=== PATIENT | female | born 1935 | race Caucasian/White ===

== ENCOUNTER 2024-02-02 12:04 | Emergency (ER) | payer OTHER, SELFPAY ==
--- NOTE | 2024-02-02 12:19 | XR_ITS ---
Examination: Duplex scan of the lower extremity, unilateral right complete Date and time of exam: February 02, 2024 1350 hours INDICATIONS: Right lower leg swelling and pain beginning 4 days ago Technique: Duplex scan of the extremity veins using B-mode/grayscale imaging and Doppler spectral analysis and color flow Attention is directed to internal echogenicity, compression and augmentation involving these veins, color flow assessment, spectral analysis Findings: Major deep venous structures in the extremity demonstrate normal course and caliber. There is no evidence of deep vein thrombosis. Normal color flow and spectral analysis Impression: Negative for DVT..
--- NOTE | 2024-02-02 12:20 | XR_ITS ---
Examination: Foot, right, 3 views Technique: AP, oblique, lateral views foot, 3 views Date and time of exam: February 02, 2024 1241 hours INDICATIONS: Right foot swelling beginning 3 days ago, diagnosis rheumatoid arthritis FINDINGS: Severe osteopenia Healed fracture distal fifth metatarsal Significant diffuse narrowing joints of the foot Soft tissue vascular calcification No acute fracture IMPRESSION: Severe osteopenia Old healed fracture fifth metatarsal No acute fracture Significant diffuse narrowing joints of the foot
--- NOTE | 2024-02-02 12:20 | XR_ITS ---
Examination: Tibia-Fibula, right , 2 views Technique: Tibia-fibula AP lateral 2 views Date and time of exam: February 02, 2024 1241 hours INDICATIONS: Swelling involving the lower leg beginning 3 days ago, diagnosis rheumatoid arthritis IMPRESSION: Severe osteopenia Soft tissue vascular calcification. No fracture or dislocation IMPRESSION: No fracture or dislocation
[2024-02-02 12:21] VITALS: BP 132/72; PULSE 102; RESP 16; TEMP 36.8; O2SAT 96; BMI 21.2
--- NOTE | 2024-02-02 15:12 | EDNOTE_ITS ---
Lower Extremity Injury RME/HPI General Chief Complaint: Skin/Abscess/Foreign Body Stated Complaint: right calf,garsia, ankle swelling/pain x2 Time Seen by Provider: 02/02/24 12:18 Arrival date/time: 02/02/24 12:04 RME / HPI RME / HPI Narrative: This section includes all my notes and documentations, including HPI, PE, and ED course.? Johnathan Fraga MD HPI: 88 year old female here with about a week history of pain and swelling in the right lower leg. No obvious injury. No redness or warmth. Definitely worse with certain movements and weight bearing. No CP or SOB. No other complaints. ROS: All negative except as documented in HPI. Physical Exam: General:? Alert and oriented.? No acute distress when remaining still. Eyes:? Conjunctivae and lids clear.?? ENT:? No nasal congestion.? Neck:? Supple.?? Lungs:? No respiratory distress.? Skin:? Warm and dry.?? Neuro:? Alert and oriented X 3. Right Lower Leg: Diffuse edema. No erythema/calor. Tenderness noted but difficult to localize. My interpretation of the right lower leg and right foot x-rays is no acute findings. My review of the right leg US report is no DVT. At this point, diagnoses include?Right Leg Sprain. Recommended a trial of conservative treatment. Based on my best medical judgment, made decision no further evaluation or treatment indicated at this time.? Patient (and son) understands and agrees to the discharge instructions customized and printed, see below. Discharge Instructions from Dr. Fraga printed for you: 1. Fortunately, there is no broken bone. And there is no DVT (blood clots) which can be fatal. 2. You sprained/strained your right lower leg. Will take a couple of weeks to get better. 3. Activity as tolerated. Apply ice for 20 minutes every 2-3 hours today and tomorrow. Ibuprofen 200 mg every 6-8 hours today and tomorrow to decrease inflammation then as needed. Apply ice/heat if helpful. Apply [id number] lidocaine patches as needed. 4. And avoid tight fitting shoes. And maybe most importantly, elevate your feet/ankles ABOVE your waist level when sitting or resting or sleeping. 5. See a private doctor 2 weeks if not completely better. 6. Seek immediate medical care with worsening or with any concerns. Johnathan Fraga MD Related Data Previous Rx's ?Medication ?Instructions ?Recorded diphenhydramine HCl 2 % topical 1 applic topical BID #118 mL 12/24/22 gel (Anti-Itch (diphenhydramine)) Allergies Allergy/AdvReac Type Severity Reaction Status Date / Time Penicillins Allergy Verified 02/02/24 12:07 pentazocine [From Talwin] Allergy Verified 02/02/24 12:07 Course Quality Measures none Orders Category Date Time Status US venous doppler LE RT Stat Exams 02/02/24 12:19 Completed XR foot comp RT min 3V Stat Exams 02/02/24 12:20 Completed XR tibia fibula RT 2V Stat Exams 02/02/24 12:20 Completed Vital Signs Vital signs: Vital Signs Temperature 98.3 F 02/02/24 12:21 Pulse Rate 102 H 02/02/24 12:21 Respiratory Rate 16 02/02/24 12:21 Blood Pressure 132/72 H 02/02/24 12:21 Pulse Oximetry (%) 96 02/02/24 12:21 Oxygen Delivery Method Room Air 02/02/24 12:21 Extremity Injury, Lower Patient data External records reviewed:: [facility] previous records Clinical information provided by:: patient and family Social determinants that could affect healthcare access:: none Patient has the following chronic illnesses:: see chart How is presenting disease/condition affected by chronic disease/condition?: uneffected by Evaluation data The following diagnostics were reviewed and interpreted by me:: radiology exam(s) Lab and/or radiology exams considered but not ordered:: none Interpretation Summary: right leg sprain Medications / Prescriptions Medications or Prescriptions considered but not ordered:: none Medication administrations:: none Consultations Consultation(s) initiated? (list below): No Diagnosis Extremity Injury, Lower Differential Diagnosis: ankle sprain and strain, acute internal derangement of knee and ankle fracture Most likely diagnosis given after review of the tests above:: right leg sprain Admission Indicated Admission indicated?: not indicated Explain why admission is indicated or not indicated:: Admission criteria not met Admission Request Was there a request for admission?: No Disposition Plan Disposition Plan: Discharge Discharge Attestation Discharge Attestation: The patient and all family members were given an opportunity to ask questions and understood the discharge instructions. Discharge instructions specifically effects, indications for sooner follow up or return to the emergency department, and the expected course of current diagnosis. Patient condition: Stable Discharge Plan Plan Patient Disposition: HOME (Self Care) Prescriptions/Referrals Prescriptions/Med Rec: No Action Anti-Itch (diphenhydramine) 2 % gel 1 applic topical BID Qty: 118 0RF Referrals: No Primary/Family,Physician [Primary Care Provider] - In 1 week Problem List Clinical Impression: High ankle sprain of right lower extremity Patient/Caregiver Discharge Instructions Discharge Activity: activity as tolerated Education Materials: ED Muscle Strain, Extremity, ED Ankle Sprain (Adult) Additional Instructions: Discharge Instructions from Dr. Fraga printed for you: 1. Fortunately, there is no broken bone. And there is no DVT (blood clots) which can be fatal. 2. You sprained/strained your right lower leg. Will take a couple of weeks to get better. 3. Activity as tolerated. Apply ice for 20 minutes every 2-3 hours today and tomorrow. Ibuprofen 200 mg every 6-8 hours today and tomorrow to decrease inflammation then as needed. Apply ice/heat if helpful. Apply [id number]-urh-[id number] lidocaine patches as needed. 4. And avoid tight fitting shoes. And maybe most importantly, elevate your feet/ankles ABOVE your waist level when sitting or resting or sleeping. 5. See a private doctor 2 weeks if not completely better. 6. Seek immediate medical care with worsening or with any concerns. Print Language: B[place] Stand Alone Forms: Ofe Award Info., Patient Portal Info Letter
== END 2024-02-02 15:45 | disposition home or self-care (01) ==
PROVIDERS: Emergency Provider Emergency Medicine
DX: S93.401A Sprain of unspecified ligament of right ankle, initial encounter (principal); M79.89 Other specified soft tissue disorders; X58.XXXA Exposure to other specified factors, initial encounter
CPT/HCPCS: 73590; 73630; 93971; 99284

== ENCOUNTER 2024-04-10 06:13 | Emergency (ER) | payer MEDICARE, MEDICAID, SELFPAY ==
--- NOTE | 2024-04-10 06:20 | EKG_ITS ---
[facility] Test Date: 2024-04-10 Pat Name: MIGNON KEY Department: Room: - Gender: Female Clinical Trial Specialist: : 1935 Requested By: Weston Armendariz ([employer]) Order Number: [id number] Reading MD: Weston Armendariz ([employer]) Measurements Intervals [place] Rate: 104 P: 68 MT: 184 QRS: -45 QRSD: 83 T: 11 QT: 346 QTc: 455 Interpretive Statements SINUS TACHYCARDIA LEFT ANTERIOR FASCICULAR BLOCK [QRS AXIS <= -45, QR IN I, RS IN II] MODERATE VOLTAGE CRITERIA FOR LVH, CONSIDER NORMAL VARIANT [MEETS CRITERIA IN ONE OF: R(aVL), S(V1), R(V5), R(V5/V6)+S(V1)] POSSIBLE ANTEROSEPTAL MYOCARDIAL INFARCTION , PROBABLY OLD [30 ms Q WAVE IN V1-V4] No previous ECG available for comparison /store/S0/[id number].pdf
[2024-04-10 06:33] VITALS: BP 119/57; PULSE 104; RESP 15; TEMP 36.8; O2SAT 97
--- NOTE | 2024-04-10 06:34 | XR_ITS ---
Examination: PA lateral chest 2 views TECHNIQUE: Upright PA lateral chest 2 views Exam date and time: January 08, 2025 0659 hours INDICATIONS: Onset acute chest pain today. FINDINGS: Mild prominence left ventricle Mild vascular congestion Accentuation bronchovascular markings No lobar pneumonia or mckenna pulmonary edema Small probable granuloma in the left lower lobe IMPRESSION: Bronchitis pattern
--- NOTE | 2024-04-10 06:35 | PD.EDRME ---
Rapid Medical Screening Exam RME Arrival date/time: 04/10/24 06:13 88-year-old female presents to the Emergency Department today complaints of pain to left side of her ribs which radiated across chest Chief Complaint: Chest Pain Vital signs: Vital Signs Temperature 98.3 F 04/10/24 06:33 Pulse Rate 104 H 04/10/24 06:33 Respiratory Rate 15 04/10/24 06:33 Blood Pressure 119/57 L 04/10/24 06:33 Pulse Oximetry (%) 97 04/10/24 06:33 Oxygen Delivery Method Room Air 04/10/24 06:33
[2024-04-10 08:33] LABS: Basophils % (Auto) 0 % (0-2.5); Eosinophils # (Auto) 0.3 Thou/mm3 (0.0-0.5); Eosinophils % (Auto) 3 % (0-10); Hematocrit 31.8 % (36.0-46.0); Immature Granulocytes % (Auto) 0 % (0-0); Immature Granulocytes Auto 0.05 Thou/mm3 (0.00-0.00); Lymphocytes # (Auto) 1.4 Thou/mm3 (1.0-4.8); Lymphocytes % (Auto) 12 % (10-50); Mean Corpuscular HGB Conc 31.4 g/dl (31.0-37.0); Mean Corpuscular Hemoglobin 25.4 pg (25.0-35.0); Mean Corpuscular Volume 81 fL (80-100); Monocytes # (Auto) 1.1 Thou/mm3 (0.0-0.8); Monocytes % (Auto) 9 % (0-12); Neutrophils % (Auto) 76 % (37-80); Nucleated Red Blood Cell % 0 /100 WBC (0); Platelet Count 497 Thou/mm3 (140-440); RDW Standard Deviation 44.2 fL (36.4-46.3); Red Blood Count 3.93 Miln/mm3 (4.00-5.20); White Blood Count 11.9 Thou/mm3 (3.6-11.0)
[2024-04-10 08:58] LABS: Alanine Aminotransferase 8 U/L (10-49); Albumin, Serum 3.9 gm/dL (3.4-4.8); Alkaline Phosphatase 121 U/L (46-116); Anion Gap 10 (7-16); Aspartate Amino Transferase 13 U/L (0-34); BUN/Creatinine Ratio 38 Ratio (12-20); Bilirubin,Total 0.2 mg/dL (0.3-1.2); Blood Urea Nitrogen 34 mg/dL (9-23); Calcium 9.4 mg/dL (8.3-10.6); Calcium (Corrected) 9.5 mg/dL (8.5-10.1); Carbon Dioxide 25.8 mMol/L (20.0-31.0); Chloride 100 mMol/L (98-107); Creatinine (Component) 0.9 mg/dL (0.6-1.3); Estimated Creatinine Clearance 36.4 mL/min (>60); Globulin 4.1 gm/dL (2.3-3.5); Glucose 124 mg/dL (74-106); Osmolality,Calculated 280 (275-295); Potassium 4.2 mMol/L (3.4-5.1); Sodium 136 mMol/L (136-145); Troponin I < 0.020 ng/mL (0.0-0.045); eGFR > 60 See Note
[2024-04-10 09:58] LABS: B-Type Natriuretic Peptide 78 pg/mL (0-100)
--- NOTE | 2024-04-10 12:48 | EDNOTE_ITS ---
ED Chest Pain RME/HPI General Chief Complaint: Chest Pain Stated Complaint: CHEST PAIN X 30MINS Time Seen by Provider: 04/10/24 12:38 Arrival date/time: 04/10/24 06:13 RME / HPI RME / HPI narrative: 88-year-old patient came in for evaluation regarding pain to the left side of the rib, radiating to the right side of the chest. Described as dull ache, severity mild. Incident happened about 6 AM this morning. Denies any cough denies any other complaints. When the patient arrived in the emergency room the pain is totally gone. Related Data Previous Rx's ?Medication ?Instructions ?Recorded diphenhydramine HCl 2 % topical 1 applic topical BID # 118 mL 12/24/22 gel (Anti-Itch (diphenhydramine)) Allergies Allergy/AdvReac Type Severity Reaction Status Date / Time Penicillins Allergy Verified 02/02/24 12:07 pentazocine (From Talwin) Allergy Verified 02/02/24 12:07 Review of Systems Review of Systems Narrative Review of Systems: Review of system reviewed and within normal limits except mentioned in HPI ED Exam Narrative Physical exam: VITAL SIGNS: Reviewed. GENERAL APPEARANCE: Alert and interactive, follows commands, no acute distress, fragile elderly HEAD AND FACE: Non-traumatic. ENT: PERRL, pink conjunctivitis, eyelid no trauma, Mucous membrane moist. NECK: Supple, nontender, no nuchal rigidity. CHEST: No tenderness, no crepitus, no paradoxical movement, no retractions. LUNGS: Clear, well ventilated, symmetric, no rales, no wheezing, no ronchi, no stridor, good breath sounds bilaterally. HEART: Regular rate, regular rhythm, no murmur, no gallops. ABDOMEN: Soft, positive bowel sounds, nondistended, no guarding, nontender, no rebound, no masses, RECTAL: Deferred. GENITAL: Deferred. NEUROLOGICAL: Gross motor function intact sensory function intact, Appropriate for age. MUSCULOSKELETAL: low back nontender, full range of motion. EXTREMITIES: Nontender, full range of motion. SKIN: Color pink, dry, no rash, no lacerations, no abrasions, no contusions. LYMPHATICS: Deferred. Course Quality Measures none Orders Category Date Time Status EKG (ED ONLY) *Do not use* NOW Care 04/10/24 06:20 Completed EKG (ED Only) Stat Exams 04/10/24 06:20 Ordered XR chest 2V Stat Exams 04/10/24 06:34 Completed B-Type Natriuretic Peptide Stat Lab 04/10/24 07:35 Completed CBC Stat Lab 04/10/24 07:35 Completed Comprehensive Metabolic Panel Stat Lab 04/10/24 07:35 Completed Troponin I Stat Lab 04/10/24 07:35 Completed Vital Signs Vital signs: Vital Signs Temperature 98.3 F 04/10/24 06:33 Pulse Rate 104 H 04/10/24 06:33 Respiratory Rate 15 04/10/24 06:33 Blood Pressure 119/57 L 04/10/24 06:33 Pulse Oximetry (%) 97 04/10/24 06:33 Oxygen Delivery Method Room Air 04/10/24 06:33 Chest Pain MDM Narrative MDM Narrative:: 88-year-old patient came in for evaluation regarding pain to the left side of the rib, radiating to the right side of the chest. Described as dull ache, severity mild. Incident happened about 6 AM this morning. Denies any cough denies any other complaints. When the patient arrived in the emergency room the pain is totally gone. Patient's cardiac workup all came back normal. CBC showed hemoglobin of 10.0, hematocrit of 31.8 troponin is normal chest x-ray showed bronchitis pattern otherwise unremarkable. No recurrence of chest pain noted in the emergency room. Patient appears nontoxic and hemodynamically stable. Patient discharged home and instructed to follow-up with primary care provider in 24 to 48 hours. Instructed to return to the emergency department immediately if worsening of symptoms Patient data External records reviewed:: None Clinical information provided by:: none Social determinants that could affect healthcare access:: none Patient has the following chronic illnesses:: Rheumatoid arthritis How is presenting disease/condition affected by chronic disease/condition?: exacerbated by Evaluation data The following diagnostics were reviewed and interpreted by me:: lab results and radiology exam(s) Lab and/or radiology exams considered but not ordered:: None Interpretation Summary: See results in MDM Medications / Prescriptions Medications or Prescriptions considered but not ordered:: None Medication administrations:: None Consultations Consultation(s) initiated? (list below): No Diagnosis Most likely diagnosis given after review of the tests above:: None Admission Indicated Admission indicated?: not indicated Admission Request Was there a request for admission?: No Disposition Plan Disposition Plan: Discharge Discharge Attestation Discharge Attestation: The patient and all family members were given an opportunity to ask questions and understood the discharge instructions. Discharge instructions specifically effects, indications for sooner follow up or return to the emergency department, and the expected course of current diagnosis. Patient condition: Stable Discharge Plan Plan Patient Disposition: HOME (Self Care) Disposition Comment: stable Prescriptions/Referrals Prescriptions/Med Rec: No Action Anti-Itch (diphenhydramine) 2 % gel 1 applic topical BID Qty: 118 0RF Referrals: Liborio Nava PA-C [Primary Care Provider] - In 1 week Problem List Clinical Impression: Chest pain, Hx of rheumatoid arthritis Patient/Caregiver Discharge Instructions Discharge Activity: activity as tolerated Education Materials: ED Chest Pain, Noncardiac Additional Instructions: Thank you for the opportunity for serving you today. You are stable for discharged . You are advised to: Follow-up with your PCP in 1 to 2 days Return to ED for worsening of symptoms Increase oral fluids Print Language: Setswana Stand Alone Forms: Ofe Award Info., Patient Portal Info Letter [facility] Supervising Physician CHIKI Supervising Physician: MD emerita
[2024-04-10 13:29] VITALS: BP 122/77; PULSE 78; TEMP 36.6; O2SAT 99
== END 2024-04-10 13:30 | disposition home or self-care (01) ==
PROVIDERS: Nurse Practitioner Primary Care; Emergency Provider Emergency Medicine; PCP Physician Assistant Medical
DX: R07.89 Other chest pain (principal); M06.9 Rheumatoid arthritis, unspecified
CPT/HCPCS: 36415; 71046; 80053; 83880; 84484; 85025; 93005; 99283

== ENCOUNTER 2024-09-26 10:09 | Inpatient (IN) | payer MEDICARE, MEDICAID, SELFPAY ==
[2024-09-26] VITALS (8 sets, daily range): BP systolic 122–178; BP diastolic 76–103; PULSE 88–108; RESP 14–98; TEMP 36.6–38.9; O2SAT 97–100
--- NOTE | 2024-09-26 10:10 | EKG_ITS ---
[facility] Test Date: 2024-09-26 Pat Name: MIGNON KEY Department: Room: - Gender: Female Tallow Maker: : 1935 Requested By: Payal Villa Order Number: [id number] Reading MD: Payal Villa Measurements Intervals [place] Rate: 102 P: 95 [place]: 199 QRS: -50 QRSD: 96 T: 66 QT: 312 QTc: 406 Interpretive Statements SINUS TACHYCARDIA LEFT ANTERIOR FASCICULAR BLOCK [QRS AXIS <= -45, QR IN I, RS IN II] NONSPECIFIC ST & T-WAVE ABNORMALITY Compared to ECG 04/10/2024 06:29:11 T-wave abnormality now present Myocardial infarct finding no longer present /store/S0/[id number]
--- NOTE | 2024-09-26 10:11 | PD.EDNEURO ---
Neuro Symptoms Deficit-RME/HPI General Chief Complaint: Neuro Symptoms/Deficit Stated Complaint: STROKE Time Seen by Provider: 09/26/24 10:11 Arrival date/time: 09/26/24 10:09 RME / HPI RME / HPI Narrative: DR. RESENDEZ MAIN ED EVALUATION: 88-year-old female with past medical history of bladder prolapse (1995), hypertension, and rheumatoid arthritis presents to the Emergency Department BIBA from home with complaint of altered mental status, difficulty speaking. Per EMS, symptoms began approximately 45 minutes prior to arrival, patient arrived at 1009 hours. Patient was unable to make out words clearly. EMS was told by the patient?s that she was last known well 45 minutes prior to arrival, so about 0925 hours. Patient had a fever here of 101.1 F. At 1305 hours, we got more history from the son. Per son, patient has been complaining of headaches intermittently for a couple of months . Related Data Home Medications ?Medication ?Instructions ?Recorded ?Confirmed atorvastatin 10 mg tablet 10 mg PO DAILY 09/26/24 09/26/24 baclofen 10 mg tablet mg 09/26/24 celecoxib 200 mg capsule 200 mg PO DAILY 09/26/24 09/26/24 citalopram 20 mg tablet mg 09/26/24 colchicine 0.6 mg tablet 0.6 mg PO BID 09/26/24 09/26/24 felodipine 5 mg tablet,extended 5 mg PO DAILY 09/26/24 09/26/24 release 24 hr levofloxacin 500 mg tablet mg 09/26/24 levothyroxine 50 mcg tablet 50 mcg PO DAILY 09/26/24 09/26/24 loratadine 10 mg tablet 10 mg PO QDAY 09/26/24 09/26/24 (Allerclear) pantoprazole 20 mg tablet,delayed 20 mg PO 09/26/24 release prednisone 20 mg tablet 20 mg PO BID 09/26/24 09/26/24 Previous Rx's ?Medication ?Instructions ?Recorded diphenhydramine HCl 2 % topical 1 applic topical BID #118 mL 12/24/22 gel (Anti-Itch (diphenhydramine)) Allergies Allergy/AdvReac Type Severity Reaction Status Date / Time Penicillins Allergy Verified 09/26/24 10:59 pentazocine (From Eric) Allergy Verified 09/26/24 10:59 Review of Systems Review of Systems Systems Reviewed: All systems reviewed, normal except as documented Past Medical History Social History SMOKING STATUS: Never smoker SUBSTANCE USE: does not use ALCOHOL: Never ED Exam Narrative Physical exam: GENERAL APPEARANCE: awake, seems to have a word finding problem when she speaks, well-developed, well-nourished, anxious, tremulous, appears confused, gives nonsensical answers VITALS: All vitals were reviewed and the pulse ox is 97% on room air, which is normal according to my interpretation. HEENT: Normocephalic, atraumatic; pupils equal, round, reactive to light; EOMI; mucous membranes pink, moist; oropharynx clear NECK: Supple LUNGS: CTABL; no wheezes, no rales, no rhonchi HEART: Regular rate, regular rhythm; normal S1, S2; no murmurs ABDOMEN: non distended; normal BS; soft, no tenderness, no guarding, no rebound; no masses, no organomegaly, no hernia BACK: no CVA tenderness EXTREMITIES: atraumatic; no edema NEUROLOGIC: awake; seems to have a word finding problem when she speaks; tremulous; appears confused, gives nonsensical answers; no focal deficits PSYCHIATRIC: appropriate mood and affect SKIN: warm, dry, normal color; no rashes Course Quality Measures Current suspected stage: sepsis Possible source: pulmonary Blood cultures ordered: yes Antibiotic ordered: Yes Pertinent labs: 09/26/24 11:28 Lactic Acid 2.3 H mMol/L (0.4-2.0) Procalcitonin < 0.04 ng/ml (0.0-0.49) 1127: Sepsis alert initiated. Orders made at this time are congruent with ED Adult Sepsis Order List. Re-evaluation is to be completed. 1142: Fluids started. 1212: Sepsis reassessment performed consisting of lab review, vitals, physical exam including auscultation of heart, lungs, and visual evaluation of capillary refills, mucosal membranes and extremities. sepsis Orders Category Date Time Status Bedside Blood Glucose NOW Care 09/26/24 10:10 Active Applied Psychology Professor NOW Care 09/26/24 10:10 Active Continuous Pulse Oximetry NOW Care 09/26/24 10:10 Completed EKG (ED ONLY) *Do not use* NOW Care 09/26/24 10:10 Completed In and Out Catheter NEEDED Care 09/26/24 10:10 Active Insert IV NOW Care 09/26/24 10:10 Active NIH Stroke Scale now Care 09/26/24 10:10 Active NPO NOW Care 09/26/24 10:10 Active Nurse Swallow Screen x1 Care 09/26/24 10:10 Active Consult to Neurology / Tele-Neurology Routine Cons 09/26/24 10:[address] angio stroke protocol Stat Exams 09/26/24 10:[address] stroke protocol Stat Exams 09/26/24 10:10 Completed EKG (ED Only) Stat Exams 09/26/24 10:10 Draft XR chest 1V portable Stat Exams 09/26/24 10:10 Completed B-Type Natriuretic Peptide Stat Lab 09/26/24 10:23 Completed Blood Culture (Lab) Stat Lab 09/26/24 11:28 Received CBC Stat Lab 09/26/24 10:23 Completed Comprehensive Metabolic Panel Stat Lab 09/26/24 10:23 Completed Drug Screen,Urine Stat Lab 09/26/24 11:11 Completed Lactate (Lactic Acid) Stat Lab 09/26/24 11:28 Completed Magnesium Stat Lab 09/26/24 10:23 Completed Partial Thromboplastin Time Stat Lab 09/26/24 10:23 Completed Procalcitonin Stat Lab 09/26/24 11:28 Completed Prothrombin Time with INR Stat Lab 09/26/24 10:23 Completed Troponin I Stat Lab 09/26/24 10:23 Completed Troponin I Stat Lab 09/26/24 14:15 Completed Urinalysis Stat Lab 09/26/24 11:10 Completed Urine Culture Stat Lab 09/26/24 11:10 Received Acetaminophen Ivpb [Ofirmev Inj] Med 09/26/24 11:26 Discontinued 1,000 mg in 100 ml IV X1 Azithromycin Inj [Zithromax Inj] 500 mg Med 09/26/24 12:14 Discontinued Sodium Chloride 0.9% 250 ml [Ns] 250 ml IV X1 Diazepam Inj [Valium Inj] Med 09/26/24 11:19 Discontinued 5 mg IVP X1 ONE LORazepam [Ativan] Med 09/26/24 10:36 Discontinued 1 mg PO X1 ONE Sodium Chloride 0.9% 1000 ml [Ns] 1,000 ml Med 09/26/24 11:34 Discontinued IV 999 mls/hr cefTRIAXone/D5w 1gm IV premix [Rocephin/D5w 1gm IV Med 09/26/24 12:14 Discontinued premix] 1 gm in 50 ml IV X1 clonazePAM [KlonoPIN] Med 09/26/24 10:35 Discontinued 0.5 mg PO X1 ONE Oxygen Delivery NOW RT 09/26/24 10:10 Active Vital Signs Vital signs: Vital Signs Temperature 101.0 F H 09/26/24 10:57 Pulse Rate 108 H 09/26/24 10:57 Respiratory Rate 18 09/26/24 10:57 Blood Pressure 162/103 H 09/26/24 10:57 Pulse Oximetry (%) 97 09/26/24 10:57 Oxygen Delivery Method Room Air 09/26/24 10:57 Neuro Symptoms / Deficit MDM Narrative MDM Narrative:: I, Johanna Barron, am scribing for and in the presence of Dr. Resendez. Patient data External records reviewed:: [facility] previous records and EMS form Clinical information provided by:: patient and EMS Social determinants that could affect healthcare access:: none Patient has the following chronic illnesses:: bladder prolapse (1995), hypertension, and rheumatoid arthritis How is presenting disease/condition affected by chronic disease/condition?: uneffected by Evaluation data The following diagnostics were reviewed and interpreted by me:: lab results, radiology exam(s) and EKG tracing(s) (My interpretation: EKG performed at 1040 hours, sinus tachycardia, rate 102, ST depressions V4-V6) Lab and/or radiology exams considered but not ordered:: none Interpretation Summary: Procedure(s): XR chest 1V portable Accession Number(s): [id number] cc: Lars Navarro MD; Mehran Saeed MD; Payal Resendez MD~ Examination: AP chest single view TECHNIQUE: AP portable upright chest single view Date and time: September 26, 2024 1041 hours INDICATIONS: Stroke alert today. FINDINGS: Normal heart size. No aspiration pneumonia. No pulmonary edema. Severe osteopenia IMPRESSION: No aspiration pneumonia. Dictated By: Mehran Saeed MD Procedure(s): CT stroke protocol Accession Number(s): [id number] cc: Mehran Saeed MD; Payal Resendez MD~ Examination: CT brain head without contrast. 2-D sagittal coronal reconstructions Date and time of exam:September 26, 2024 1016 hours INDICATIONS: Altered mental status today CTDI: vol (mGy):41.9 DLP: (mGycm):840 Technique: Multiple CT axial sections of the brain have been obtained, 5 mm slice thickness. Contrast has not been administered. 2-D sagittal, coronal reconstructions have been obtained Low dose protocols were performed. One or more of the following dose reduction techniques were used; automated exposure control, adjustment of the mA and/or KV according to patient size, use of iterative reconstruction technique. Findings: No significant ventricular enlargement. Intra-axial or extra-axial hemorrhage density is not seen. No mass effect or midline shift Basal cisterns are not remarkable. Fourth ventricle is midline. Cranial vault intact. Impression: Negative for acute hemorrhage, mass effect or midline shift Advise clinical correlation follow-up accordingly Dictated By: Mehran Saeed MD Procedure(s): CT angio stroke protocol Accession Number(s): [id number] cc: Lars Navarro MD; Mehran Saeed MD; Payal Resendez MD~ Examination: CTA carotids with intravenous contrast CTA brain, head with intravenous contrast. 2-D sagittal, coronal reconstructions. 3-D reconstructions. Exam date and time: September 26, 2024 1029 hours INDICATIONS: Stroke alert, onset altered mental status today CTDI: vol (mGy) 15.2 DLP: (mGycm) 389 Technique: Multiple CTA axial brain, head carotid images post intravenous contrast injection 75 cc, [id number]. 2-D sagittal, coronal reconstructions. 3-D reconstructions, 3-D post processing including vascular maximum intensity projection images. Low dose protocols were performed. One or more of the following dose reduction techniques were used; automated exposure control, adjustment of the mA and/or KV according to patient size, use of iterative reconstruction technique. Findings: Dilated bronchi in both upper lobes greater right upper lobe No significant right common carotid bifurcation Heavy calcification right carotid bifurcation 10-30% stenosis Internal carotid artery intact Heavy calcification left carotid bifurcation, 70% stenosis origin left internal carotid artery Dominant right vertebral artery with no critical stenoses No cerebral large vessel arterial occlusions or thrombus IMPRESSION: 70% stenosis origin left internal carotid artery No cerebral large vessel arterial occlusions or thrombus Dictated By: Mehran Saeed MD Medications / Prescriptions Medications or Prescriptions considered but not ordered:: none Medication administrations:: Medication Administration History Aspirin (Aspirin Ec 81 Mg Tabec) 81 mg PO QDAY [facility] Stop: 10/27/24 08:59 Last Admin: 09/27/24 08:32 Dose: 81 mg Documented By: KAISER Atorvastatin Calcium (Atorvastatin Calcium 20 Mg Tablet) 40 mg PO HS [facility] Stop: 10/26/24 20:59 Last Admin: 09/26/24 21:47 Dose: 40 mg Documented By: JAMES Bisacodyl (Bisacodyl 10 Mg Supp) 10 mg [place] QDAY PRN; Protocol PRN Reason: CONSTIPATION Stop: 10/26/24 17:49 Diazepam (Diazepam Inj 5 Mg/Ml Vial 2 Ml) 2.5 mg IVP X1 PRN PRN Reason: for mri Stop: 10/01/24 18:19 Last Admin: 09/27/24 08:32 Dose: 2.5 mg Documented By: KAISER Ceftriaxone Sodium/Dextrose (Rocephin/D5w 1gm Iv Premix) 1 gm in 50 mls @ 100 mls/hr IV QDAY [facility] Stop: 10/04/24 08:59 Last Admin: 09/27/24 08:32 Dose: 100 mls/hr Documented By: KAISER Levothyroxine Sodium (Levothyroxine Sodium 25 Mcg Tablet) 50 mcg PO ACBR [facility] Stop: 10/27/24 05:59 Last Admin: 09/27/24 05:45 Dose: 50 mcg Documented By: JAMES Loratadine (Loratadine 10 Mg Tablet) 10 mg PO QDAY PRN PRN Reason: itchiness or allergies Stop: 10/27/24 08:59 Last Admin: 09/27/24 08:32 Dose: 10 mg Documented By: KAISER Pantoprazole Sodium (Pantoprazole Inj 40 Mg Vial) 40 mg IVP QDAY [facility] Stop: 10/27/24 08:59 Last Admin: 09/27/24 08:32 Dose: 40 mg Documented By: KAISER Simethicone (Simethicone 80 Mg Chew) 80 mg PO QID PRN PRN Reason: GAS Stop: 10/26/24 17:45 Discontinued Medications Aspirin (Aspirin Ec 81 Mg Tabec) 81 mg PO X1 ONE Stop: 09/26/24 17:42 Last Admin: 09/26/24 21:47 Dose: 81 mg Documented By: JAMES Clonazepam (Clonazepam 0.5 Mg Tablet) 0.5 mg PO X1 ONE Stop: 09/26/24 10:36 Last Admin: 09/26/24 11:32 Dose: Not Given Documented By: LORENZO Non-Admin Reason: Cancelled by Provider Diazepam (Diazepam Inj 5 Mg/Ml Vial 2 Ml) 5 mg IVP X1 ONE Stop: 09/26/24 11:20 Last Admin: 09/26/24 11:31 Dose: 5 mg Documented By: LORENZO Acetaminophen (Ofirmev Inj) 1,000 mg in 100 mls @ 250 mls/hr IV X1 ONE Stop: 09/26/24 11:49 Last Infusion: 09/26/24 12:06 Dose: Infused Documented By: Admin: 09/26/24 11:42 Dose: 250 mls/hr Documented By: LORENZO Sodium Chloride (Ns) 1,000 mls @ 999 mls/hr IV .Q1H1M ONE Stop: 09/26/24 12:34 Last Infusion: 09/26/24 12:43 Dose: Infused Documented By: Admin: 09/26/24 11:42 Dose: 999 mls/hr Documented By: LORENZO Azithromycin 500 mg/ Sodium (Chloride) 250 mls @ 250 mls/hr IV X1 ONE Stop: 09/26/24 13:13 Last Infusion: 09/26/24 14:08 Dose: Infused Documented By: Admin: 09/26/24 12:26 Dose: 250 mls/hr Documented By: LORENZO Ceftriaxone Sodium/Dextrose (Rocephin/D5w 1gm Iv Premix) 1 gm in 50 mls @ 100 mls/hr IV X1 ONE Stop: 09/26/24 12:43 Last Infusion: 09/26/24 12:56 Dose: Infused Documented By: Admin: 09/26/24 12:26 Dose: 100 mls/hr Documented By: LORENZO Ceftriaxone Sodium 1 gm/ (Sodium Chloride) 50 mls @ 100 mls/hr IV QDAY [facility] Stop: 10/04/24 08:59 Lorazepam (Lorazepam 0.5 Mg Tablet) 1 mg PO X1 ONE Stop: 09/26/24 10:37 Last Admin: 09/26/24 11:32 Dose: Not Given Documented By: LORENZO Non-Admin Reason: Contraindicated see above Consultations Consultation(s) initiated? (list below): Yes Consultation #1 (Physician, Specialty, Details): Discussed test HPI, PMHx, lab, radiology results and/or management with resident working with the hospitalist. Will admit for further evaluation and management. Accepts patient for admission. Time: 14:22 Diagnosis Neuro Differential Diagnosis: cerebrovascular accident, transient cerebral ischemia and other (acute ischemic stroke, metabolic encephalopathy) Most likely diagnosis given after review of the tests above:: Sepsis Admission Indicated Admission indicated?: indicated Admission Request Was there a request for admission?: Yes Admission Attestation Admission request attestation: Discussed case with [] from Hospitalist service regarding admission. Discussed patients ED course, exam findings, labs, and radiology results. The Hospitalist [agrees,declines] to accept the patient for admission. Disposition Plan Disposition Plan: Admit Critical Care Time Critical Care Time Critical Care Time: Yes Total Critical Care Time (min.): 45 Attestation: The high probability of sudden, clinically significant deterioration in the patient?s condition required the highest level of my preparedness to intervene urgently. The services I provided to this patient were to treat and/or prevent clinically significant deterioration. Services included the following: chart data review, reviewing nursing notes and/or old charts, documentation time, business travel consultant collaboration regarding findings and treatment options, medication orders and management, direct patient care, vital sign assessments and ordering, interpreting and reviewing diagnostic studies and lab tests. Aggregate critical care time includes only time during which I was engaged in work directly related to the patient?s care, as described above, whether at bedside or elsewhere in the Emergency Department. It did not include time spent performing other reported procedures or the services of residents, students, nurses or physician assistants. Discharge Plan Plan Patient Disposition: Admit Acute Care w/in Hospital Problem List Clinical Impression: Sepsis
--- NOTE | 2024-09-26 10:34 | ESCONSULT_ITS ---
Tele Neuro Consultation Consultation Date 09/26/24 Consultation Narrative [facility] Tele[facility]urology Consult Services Patient Name:???Cathie Plasencia I Date of :???1935 Identification Number:??? Date of Service:???09/26/2024 10:04:39 Diagnosis:?G93.49 - Encephalopathy Impression: ?88 y/o woman with h/o tremors who presents to the ED for AMS. No focal neurologic deficits on exam. CTA head and neck pending. Our recommendations are outlined below. Recommendations: ? Stroke/Telemetry Floor ? Neuro Checks ? Bedside Swallow Eval ? DVT Prophylaxis ? IV Fluids, Normal Saline ? Head of Bed 30 Degrees ? Euglycemia and Avoid Hyperthermia (PRN Acetaminophen) ? Antihypertensives PRN if Blood pressure is greater than 220/120 or there is a concern for End organ damage/contraindications for permissive HTN. If blood pressure is greater than 220/120 give labetalol PO or IV or Vasotec IV with a goal of 15% reduction in BP during the first 24 hours. ?ASA 81 if no contraindications Sign Out: ? Discussed with Emergency Department Provider Advanced Imaging: Advanced imaging has been ordered. Results pending. Metrics: Last Known Well: Unknown Dispatch Time: 09/26/2024 10:04:39 Arrival Time: 09/26/2024 10:10:00 Initial Response Time: 09/26/2024 10:07:34Symptoms: AMS. Initial patient interaction: 09/26/2024 10:17:48 NIHSS Assessment Completed: 09/26/2024 10:20:36Patient is not a candidate for Thrombolytic. Thrombolytic Medical Decision: 09/26/2024 10:20:38Patient was not deemed candidate for Thrombolytic because of following reasons: other diagnosis suspected Case discussed with Dr. Resendez (ED attending). No focal neurologic deficits. Unclear last known well. . CT Head: I personally reviewed all the CT images that were available to me and it showed: No acute hemorrhage. No large territory acute ischemic stroke. Primary Provider Notified of Diagnostic Impression and Management Plan on: 09/26/2024 10:24:57 History of Present Illness:Patient is a 88 year old Female. Patient was brought by EMS for symptoms of AMS. 88 y/o woman with h/o tremors who presents to the ED via EMS. Emergent telestr jeff consult requested. Patient is tremulous and confused. No focal deficits on exam. She has intermittent fluent spontaneous speech. Patient appears highly anxious and she states feels anxious. CT brain reviewed and case discussed with the ED attending (Dr. Resendez). Medications: Anticoagulant use:??Unknown Antiplatelet use:?Unknown Reviewed EMR for current medications Allergies:? Reviewed Allergies Unable To Obtain Due To:?Patient Is Confused Social History: Unable To Obtain Due To Patient Status :?Patient Is Confused Family History: Family History Cannot Be Obtained Because:Patient Is Confused ROS :?ROS Cannot Be Obtained Because:? Patient Is Confused Past Surgical History: Past Surgical History Cannot Be Obtained Because: Patient Is Confused Examination: BP(167/77),?Pulse(106),?Blood Glucose(116) 1A: Level of Consciousness - Alert; keenly responsive?+ 0 1B: Ask Month and Age - Could Not Answer Either Question Correctly?+ 2 1C: Blink Eyes & Squeeze Hands - Performs Both Tasks?+ 0 2: Test Horizontal Extraocular Movements - Normal?+ 0 3: Test Visual Frost - No Visual Loss?+ 0 4: Test Facial Palsy (Use Grimace if Obtunded) - Normal symmetry?+ 0 5A: Test Left Arm Motor Drift - No Drift for 10 Seconds?+ 0 5B: Test Right Arm Motor Drift - No Drift for 10 Seconds?+ 0 6A: Test Left Leg Motor Drift - No Drift for 5 Seconds?+ 0 6B: Test Right Leg Motor Drift - No Drift for 5 Seconds?+ 0 7: Test Limb Ataxia (FNF/Heel-Mariano) - Does Not Understand?+ 0 8: Test Sensation - Normal; No sensory loss?+ 0 9: Test Language/Aphasia - Normal; No aphasia?+ 0 10: Test Dysarthria - Normal?+ 0 11: Test Extinction/Inattention - No abnormality?+ 0 NIHSS Score:?2 Pre-Morbid Modified Helga Scale:Unable to assess Spoke with :?Dr. Resendez Consent could not be obtained due to patient status and family not available. Patient is being evaluated for possible acute neurologic impairment and high probability of imminent or life-threatening deterioration. I spent total of 30 minutes providing care to this patient, including time for face to face visit via telemedicine, review of medical records, imaging studies and discussion of findings with providers, the patient and/or family. Dr Abdirahman Marte [facility] For Inpatient follow-up with [facility] physician please call [facility] at . As we are not an outpatient service for any post hospital discharge needs please contact the hospital for assistance. If you have any questions for the [facility] physicians or need to reconsult for clinical or diagnostic changes please contact us via [facility] at . Signature :Frieda Marte
[2024-09-26 10:35] LABS: Basophils # (Auto) 0.0 Thou/mm3 (0.0-0.2); Basophils % (Auto) 0 % (0-2.5); Eosinophils # (Auto) 0.0 Thou/mm3 (0.0-0.5); Eosinophils % (Auto) 0 % (0-10); Hematocrit 42.0 % (36.0-46.0); Hemoglobin 13.4 g/dL (12.0-16.0); Immature Granulocytes Auto 0.06 Thou/mm3 (0.00-0.00); Lymphocytes # (Auto) 5.6 Thou/mm3 (1.0-4.8); Lymphocytes % (Auto) 35 % (10-50); Mean Corpuscular HGB Conc 31.9 g/dl (31.0-37.0); Mean Corpuscular Hemoglobin 26.2 pg (25.0-35.0); Mean Corpuscular Volume 82 fL (80-100); Monocytes # (Auto) 1.0 Thou/mm3 (0.0-0.8); Monocytes % (Auto) 6 % (0-12); Neutrophils # (Auto) 9.1 Thou/mm3 (1.8-7.7); Neutrophils % (Auto) 58 % (37-80); Nucleated Red Blood Cell # 0.00 Thou/mm3 (0.00-0.00); Nucleated Red Blood Cell % 0 /100 WBC (0); Platelet Count 448 Thou/mm3 (140-440); RDW Standard Deviation 47.3 fL (36.4-46.3); Red Blood Count 5.11 Miln/mm3 (4.00-5.20); White Blood Count 15.8 Thou/mm3 (3.6-11.0)
[2024-09-26 10:56] LABS: Alanine Aminotransferase 14 U/L (10-49); Albumin, Serum 4.5 gm/dL (3.4-4.8); Albumin/Globulin Ratio 1.7 (1.2-2.2); Alkaline Phosphatase 151 U/L (46-116); Anion Gap 10 (7-16); Aspartate Amino Transferase 17 U/L (0-34); BUN/Creatinine Ratio 19 Ratio (12-20); Bilirubin,Total 0.3 mg/dL (0.3-1.2); Blood Urea Nitrogen 19 mg/dL (9-23); Calcium 9.6 mg/dL (8.3-10.6); Calcium (Corrected) 9.6 mg/dL (8.5-10.1); Carbon Dioxide 30.4 mMol/L (20.0-31.0); Chloride 95 mMol/L (98-107); Creatinine (Component) 1.0 mg/dL (0.6-1.3); Globulin 2.6 gm/dL (2.3-3.5); Glucose 109 mg/dL (74-106); Magnesium 1.7 mg/dL (1.6-2.6); Osmolality,Calculated 273 (275-295); Potassium 4.8 mMol/L (3.4-5.1); Sodium 135 mMol/L (136-145); Total Protein 7.1 gm/dL (5.7-8.2); Troponin I < 0.020 ng/mL (0.0-0.045); eGFR 54 See Note
[2024-09-26 10:58] LABS: INR 0.9 (0.9-1.3); Partial Thromboplastin Time 24.3 Seconds (22.0-36.0); Prothrombin Time 10.4 Seconds (9.0-12.2)
[2024-09-26 11:08] LABS: B-Type Natriuretic Peptide 122 pg/mL (0-100)
[2024-09-26 11:20] LABS: Collection Type, Urine Catheter
[2024-09-26] MEDS: DIAZEPAM INJ 5 MG/ML VIAL 2 ML IVP (11:31)
[2024-09-26 11:38] LABS: Lactate (Lactic Acid) 2.3 mMol/L (0.4-2.0)
[2024-09-26 11:41] LABS: Amphetamine/Methamp Scrn,U Negative (Negative); Barbiturate Screen,Urine Negative (Negative); Benzodiazepines Screen,Urine Positive (Negative); Benzoylecgonine Screen, Ur Negative (Negative); Fentanyl Screen,Urine Negative (Negative); Opiate Screen,Urine Negative (Negative); THC Screen,Urine Negative (Negative)
[2024-09-26] MEDS: ACETAMINOPHEN IVPB 1,000 MG/100 ML VIAL 250 MG IV (11:42)
[2024-09-26] MEDS: SODIUM CHLORIDE 0.9% 1000 ML 1,000 ML 999 ML IV (11:42)
[2024-09-26 12:08] LABS: Procalcitonin < 0.04 ng/ml (0.0-0.49)
[2024-09-26] MEDS: cefTRIAXone/D5w 1gm IV premix 1 GM/50 ML BAG IV (12:26)
[2024-09-26] MEDS: AZITHROMYCIN INJ 500 MG in SODIUM CHLORIDE 0.9% 250 ML 250 ML 250 MG IV (12:26)
[2024-09-26 13:18] LABS: Bilirubin,Urine Negative (Negative); Blood,Urine Negative (Negative); Clarity,Urine Clear (Clear/Hazy); Color,Urine Colorless (Lt Yel-Yel); Glucose, Urine Negative (Negative); Ketones,Urine Negative (Negative); Leukocyte Esterase,Urine Negative (Negative); Nitrite,Urine Negative (Negative); PH,Urine 7.0 (5.0-7.0); Protein,Urine Negative (Neg - Trace); RBC,Urine 2 /hpf (0-3); Specific Gravity,Urine 1.016 (1.001-1.035); Squamous Epithelial Cell,Urine 1 /hpf (0-5); Urobilinogen,Urine Negative mg/dL (0.0-1.0); WBC,Urine 1 /hpf (0-5)
[2024-09-26 14:36] LABS: Reflex Lactate? Y
[2024-09-26 14:52] LABS: Troponin I 0.125 ng/mL (0.0-0.045)
[2024-09-26 15:00] LABS: Lactic Acid, 3 HR 1.7 mMol/L (0.4-2.0)
--- NOTE | 2024-09-26 19:44 | ESHP_ITS ---
<Statement entered by Chayito Medley MD - 09/26/24 20:16> I have reviewed the note and agree with the resident's assessment & plan with exceptions as below. I have personally reviewed labs, imaging, home meds/prior records, examined the patient, formulated and discussed management plan with the IM team. #Sepsis secondary to #UTI Febrile and leukocytosis Lactate: 1.7 SOFA: 2 points Sepsis due to 2/4 SIRS criteria with acute sepsis-related organ dysfunction as evidence by troponemia Given Sepsis Bolus of 1L Plan: ? Rocephin 1 g IV (09-26 ? Follow-up urine cultures ? Follow-up blood cultures #Acute CVA rule out Plan: ? Neurology consulted, appreciate recs ? MR stroke protocol ? Speech therapy ? Physical therapy ? Echo ? Neurochecks every 4 hours ? Head of bed elevation 30 degrees ? DVT prophylaxis ? Bedrest ? Lipitor 40 mg at bedtime ? Aspirin 81 mg Chayito Medley, PGY-2 Internal Medicine Documentation for date of: 09/26/24 HPI History of Present Illness History of present illness: 88-year-old female with past medical history of bladder prolapse (1995), hypertension, and rheumatoid arthritis presents to the Emergency Department [facility] from home with complaint of altered mental status, difficulty speaking LKW: 09:25. When I examined the patient bedside she was unable to communicate and was stuck in perserverations of cold while shaking. Her son was not present. For a brief moment the patient stated what are you saying? and a brief neuro work up was done. Per chart, son states that patient has been complaining of headache for a couple of months. Medical Hx: DARCI Medications: DARCI Allergies: DARCI Surgical history: DARCI Fhx: DARCI Soc Hx: DARCI ED Course Summary: Patient was feverish with pulse ox: 97%. Patient awake, seems to have a word finding problem when she speaks, well-developed, well-nourished, anxious, tremulous, appears confused, gives nonsensical answers. Imaging was noncontributory to presentation. EKG showed t-wave abnormalities. All 12 systems reviewed and were negative except otherwise stated in HPI. Patient admitted for sepsis workup. Exam Vital Signs Temp Pulse Resp BP Pulse Ox O2 Del Method O2 Flow Rate 98.2 F 90 20 156/80 H 100 Nasal Cannula 2 09/26/24 18:09 09/26/24 18:09 09/26/24 18:09 09/26/24 18:09 09/26/24 18:09 09/26/24 18:09/26/24 18:09 Narrative Exam GENERAL APPEARANCE: awake, seems to have a word finding problem when she speaks, well-developed, well-nourished, anxious, tremulous, appears confused, gives nonsensical answers VITALS: All vitals were reviewed and the pulse ox is 97% on room air, which is normal according to my interpretation. HEENT: Normocephalic, atraumatic; pupils equal, round, reactive to light; EOMI; mucous membranes pink, moist; oropharynx clear NECK: Supple LUNGS: CTABL; no wheezes, no rales, no rhonchi HEART: Regular rate, regular rhythm; normal S1, S2; no murmurs ABDOMEN: non distended; normal BS; soft, no tenderness, no guarding, no rebound; no masses, no organomegaly, no hernia BACK: no CVA tenderness EXTREMITIES: atraumatic; no edema NEUROLOGIC: awake; seems to have a word finding problem when she speaks; tremulous; appears confused, gives nonsensical answers; no focal deficits PSYCHIATRIC: appropriate mood and affect SKIN: warm, dry, normal color; no rashes Results: Labs 09/27/24 04:50 09/26/24 10:23 Labs: Short CBC 09/26/24 Range/Units 10:23 WBC 15.8 H (3.6-11.0) Thou/mm3 Hgb 13.4 (12.0-16.0) g/dL Hct 42.0 (36.0-46.0) % Plt Count 448 H (140-440) Thou/mm3 BMP 09/26/24 10:23 Sodium 135 L Potassium 4.8 Chloride 95 L Carbon Dioxide 30.4 BUN 19 Creatinine 1.0 Glucose 109 H Calcium 9.6 Cardiac Enzymes 09/26/24 09/26/24 Range/Units 10:23 14:15 Troponin I < 0.020 0.125 H* (0.0-0.045) ng/mL Liver Function 09/26/24 Range/Units 10:23 Total Bilirubin 0.3 (0.3-1.2) mg/dL AST 17 (0-34) U/L ALT 14 (10-49) U/L Alkaline Phosphatase 151 H (46-116) U/L Albumin 4.5 (3.4-4.8) gm/dL Urine 09/26/24 Range/Units 11:10 Urine Color Colorless A (Lt Yel-Yel) Urine Clarity Clear (Clear/Hazy) Urine pH 7.0 (5.0-7.0) Ur Specific [place] 1.016 (1.001-1.035) Urine Protein Negative (Neg - Trace) Urine Glucose (UA) Negative (Negative) Quality Measures Quality Measures sepsis Current suspected stage: sepsis Possible source: pulmonary Blood cultures ordered: yes Antibiotic ordered: Yes Advance care planning discussed with:: other Medications Home Medications and Allergies Home Medications ?Medication ?Instructions ?Recorded ?Confirmed ?Type atorvastatin 10 mg tablet 10 mg PO DAILY 09/26/2409/13 History baclofen 10 mg tablet mg 09/26/24 History celecoxib 200 mg capsule 200 mg PO DAILY 09/26/2409/13 History citalopram 20 mg tablet mg 09/26/24 History colchicine 0.6 mg tablet 0.6 mg PO BID 09/26/2409/26 History felodipine 5 mg tablet,extended 5 mg PO DAILY 09/26/24 09/26/24 History release 24 hr levofloxacin 500 mg tablet mg 09/26/24 History levothyroxine 50 mcg tablet 50 mcg PO DAILY 09/26/24 0 09/26/24 History loratadine 10 mg tablet 10 mg PO QDAY 09/26/2409/26 History (Allerclear) pantoprazole 20 mg tablet,delayed 20 mg PO 09/26/24 H istory release prednisone 20 mg tablet 20 mg PO BID 09/26/24 History Allergies Allergy/AdvReac Type Severity Reaction Status Date / Time Penicillins Allergy Verified 09/26/24 10:59 pentazocine (From Eric) Allergy Verified 09/26/24 10:59 Visit Medications Aspirin (Aspirin Ec 81 Mg Tabec) 81 mg PO QDAY GERARD Stop: 10/27/24 08:59 Atorvastatin Calcium (Atorvastatin Calcium 20 Mg Tablet) 40 mg PO HS GERARD Stop: 10/26/24 20:59 Bisacodyl (Bisacodyl 10 Mg Supp) 10 mg CO QDAY PRN; Protocol PRN Reason: CONSTIPATION Stop: 10/26/24 17:49 Diazepam (Diazepam Inj 5 Mg/Ml Vial 2 Ml) 2.5 mg IVP X1 PRN PRN Reason: for mri Stop: 10/01/24 18:19 Ceftriaxone Sodium 1 gm/ (Sodium Chloride) 50 mls @ 100 mls/hr IV QDAY GERARD Stop: 10/04/24 08:59 Levothyroxine Sodium (Levothyroxine Sodium 25 Mcg Tablet) 50 mcg PO ACBR GERARD Stop: 10/27/24 05:59 Loratadine (Loratadine 10 Mg Tablet) 10 mg PO QDAY PRN PRN Reason: itchiness or allergies Stop: 10/27/24 08:59 Pantoprazole Sodium (Pantoprazole Inj 40 Mg Vial) 40 mg IVP QDAY GERARD Stop: 10/27/24 08:59 Simethicone (Simethicone 80 Mg Chew) 80 mg PO QID PRN PRN Reason: GAS Stop: 10/26/24 17:45 Discontinued Medications Aspirin (Aspirin Ec 81 Mg Tabec) 81 mg PO X1 ONE Stop: 09/26/24 17:42 Clonazepam (Clonazepam 0.5 Mg Tablet) 0.5 mg PO X1 ONE Stop: 09/26/24 10:36 Last Admin: 09/26/24 11:32 Dose: Not Given Diazepam (Diazepam Inj 5 Mg/Ml Vial 2 Ml) 5 mg IVP X1 ONE Stop: 09/26/24 11:20 Last Admin: 09/26/24 11:31 Dose: 5 mg Acetaminophen (Ofirmev Inj) 1,000 mg in 100 mls @ 250 mls/hr IV X1 ONE Stop: 09/26/24 11:49 Last Infusion: 09/26/24 12:06 Dose: Infused Sodium Chloride (Ns) 1,000 mls @ 999 mls/hr IV .Q1H1M ONE Stop: 09/26/24 12:34 Last Infusion: 09/26/24 12:43 Dose: Infused Azithromycin 500 mg/ Sodium (Chloride) 250 mls @ 250 mls/hr IV X1 ONE Stop: 09/26/24 13:13 Last Infusion: 09/26/24 14:08 Dose: Infused Ceftriaxone Sodium/Dextrose (Rocephin/D5w 1gm Iv Premix) 1 gm in 50 mls @ 100 mls/hr IV X1 ONE Stop: 09/26/24 12:43 Last Infusion: 09/26/24 12:56 Dose: Infused Lorazepam (Lorazepam 0.5 Mg Tablet) 1 mg PO X1 ONE Stop: 09/26/24 10:37 Last Admin: 09/26/24 11:32 Dose: Not Given Assessment & Plan Plan 88-year-old female with past medical history of bladder prolapse (1995), hypertension, and rheumatoid arthritis presents to the Emergency Department BIB from home with complaint of altered mental status, difficulty speaking LKW: 09:25 #Sepsis likely 2/2 to UTI w. gram neg bacteria #Stroke R/o #Acute encephalopathy CXR, CT head, and CT angio did not show any signs of stroke or localized infexn however CTA did show a 70% stenosis of the left internal carotid artery. Elevated troponins and BNP. Waxing and waning with perserverations without neurological deficits. Plan: -Continue aspirin 81mg -40mg lipitor -1g IV Cef -MRI fup -Neuro consult #Health Maintenance Disposition: Telemetry DVT prophylaxis: SCDs GI prophylaxis: Protonix Diet: Pending Swallow eval CODE STATUS: Full Patient seen and discussed with attending Dr. Deshpande, and supervising resident Dr. Medley and Dr. Lopez Note written by Kevin Lopez PGY-1 Attending Provider Attestation/Addendum After examination of the patient and review of the clinical data I feel that this patient needs admission to the hospital for further treatment/evaluation. I have discussed and was present for the essential components of the history, physical examination, diagnosis, and treatment plan with the resident. I agree with the patient's care as documented by the resident and amended herein by me. Kiko Deshpande DO. Although this document has been carefully reviewed, there may still be some phonetic and other typographical errors. These errors are purely grammatical due to imperfections in the software program and should not be construed in any way to compromise the substance of the patient's medical care during this visit. Patient seen and evaluated in the ED. Patient is a 88-year-old female with significant past medical history of bladder prolapse, hypertension and rheumatoid arthritis who presented the ED for apparent altered mental status, aphasia which began approximately 45 minutes prior to arrival. Patient was difficult to speak with, not an accurate historian, unable to provide any details in regards to her medical history at time of bedside visit. Patient subsequently admitted for strokelike symptoms, CVA rule out and possible sepsis secondary to urinary source. In the ED, Tmax was 102, significant labs included WBC of 15.8, troponin slightly elevated 0.125, peaked at 0.32 and began to downtrend. BNP was 172, CMP largely unremarkable. UA was negative however the urine was very dark. Chest x-ray unremarkable, CT head negative for any acute intracranial pathology, negative for stroke, CTA negative for LVO however did show a 70% stenosis of the left internal carotid artery. EKG demonstrated sinus tachycardia. Patient subsequently admitted to telemetry for CVA workup and possible sepsis secondary to UTI. MRI brain pending, echo pending, will allow permissive hypertension per teleneurology, patient started on ceftriaxone for urinary tract infection, blood and urine cultures pending, patient started on aspirin per teleneurology recommendations. Continue to monitor closely.
[2024-09-26 20:45] LABS: Lactate (Lactic Acid) 1.4 mMol/L (0.4-2.0)
[2024-09-26 21:20] LABS: Troponin I 0.382 ng/mL (0.0-0.045)
[2024-09-26] MEDS: ASPIRIN EC 81 MG TABEC PO (21:47)
[2024-09-26] MEDS: ATORVASTATIN CALCIUM 20 MG TABLET 40 MG PO (21:47)
[2024-09-27] VITALS (7 sets, daily range): BP systolic 116–165; BP diastolic 60–73; PULSE 69–94; RESP 16–98; TEMP 36–36.9; O2SAT 94–99
--- NOTE | 2024-09-27 | XR_ITS ---
Examinations: MRI Brain without intravenous contrast. MRA brain without intravenous contrast. MRA carotids without intravenous contrast 3-D vascular reconstructions Date and time of exam: October 07, 2024 0926 hours INDICATIONS: Stroke alert September 26, 2024, onset focal neurologic deficit altered mental status difficulty speaking Technique: Multiple axial and sagittal images of the brain have been obtained MRA brain carotid images without contrast obtained, including 3-D postprocessing, vascular maximum intensity projection images Findings: [place] is not enlarged. The optic chiasm and infundibular stalk are not remarkable. Prepontine and interpeduncular cisterns are not enlarged. No localized enlargement of the medulla or bernabe. Fourth ventricle and cerebellar tonsils normal in position. Subacute hemorrhage is not seen. Fourth ventricle is midline. Mass in the cerebellopontine angle region is not evident. 7th and 8th nerve complexes exhibits symmetry. Globes are symmetrical with no retro-orbital mass. Increased white matter signal very prominent Diffusion-weighted images demonstrate no focus of restricted diffusion Mass-effect upon the ventricular system is not identified. MRA carotid images no significant carotid stenoses. MRA brain images significant irregularity right posterior cerebral artery Impression: Negative for acute hemorrhage, mass effect or midline shift No acute infarct Chronic multi-infarct dementia pattern. Significant irregularity right posterior cerebral artery
[2024-09-27] MEDS: LEVOTHYROXINE SODIUM 25 MCG TABLET 50 MCG PO (05:45)
[2024-09-27 06:23] LABS: Troponin I 0.171 ng/mL (0.0-0.045)
[2024-09-27 08:08] LABS: Basophils # (Auto) 0.0 Thou/mm3 (0.0-0.2); Basophils % (Auto) 0 % (0-2.5); Eosinophils # (Auto) 0.0 Thou/mm3 (0.0-0.5); Eosinophils % (Auto) 0 % (0-10); Hematocrit 41.0 % (36.0-46.0); Hemoglobin 13.0 g/dL (12.0-16.0); Immature Granulocytes Auto 0.05 Thou/mm3 (0.00-0.00); Lymphocytes # (Auto) 4.0 Thou/mm3 (1.0-4.8); Lymphocytes % (Auto) 29 % (10-50); Mean Corpuscular HGB Conc 31.7 g/dl (31.0-37.0); Mean Corpuscular Hemoglobin 26.1 pg (25.0-35.0); Mean Corpuscular Volume 82 fL (80-100); Monocytes # (Auto) 1.3 Thou/mm3 (0.0-0.8); Monocytes % (Auto) 10 % (0-12); Neutrophils # (Auto) 8.2 Thou/mm3 (1.8-7.7); Neutrophils % (Auto) 60 % (37-80); Nucleated Red Blood Cell # 0.00 Thou/mm3 (0.00-0.00); Nucleated Red Blood Cell % 0 /100 WBC (0); Platelet Count 379 Thou/mm3 (140-440); RDW Standard Deviation 48.4 fL (36.4-46.3); Red Blood Count 4.99 Miln/mm3 (4.00-5.20); White Blood Count 13.6 Thou/mm3 (3.6-11.0)
[2024-09-27] MEDS: ASPIRIN EC 81 MG TABEC PO (08:32)
[2024-09-27] MEDS: DIAZEPAM INJ 5 MG/ML VIAL 2 ML 2.5 MG IVP (08:32)
[2024-09-27] MEDS: cefTRIAXone/D5w 1gm IV premix 1 GM/50 ML BAG IV (08:32)
[2024-09-27 08:39] LABS: Alanine Aminotransferase 13 U/L (10-49); Albumin, Serum 3.8 gm/dL (3.4-4.8); Albumin/Globulin Ratio 1.7 (1.2-2.2); Alkaline Phosphatase 130 U/L (46-116); Anion Gap 10 (7-16); Aspartate Amino Transferase 21 U/L (0-34); BUN/Creatinine Ratio 19 Ratio (12-20); Bilirubin,Total 0.6 mg/dL (0.3-1.2); Blood Urea Nitrogen 15 mg/dL (9-23); Calcium 8.8 mg/dL (8.3-10.6); Calcium (Corrected) 9.0 mg/dL (8.5-10.1); Carbon Dioxide 29.3 mMol/L (20.0-31.0); Chloride 94 mMol/L (98-107); Creatinine (Component) 0.8 mg/dL (0.6-1.3); Globulin 2.2 gm/dL (2.3-3.5); Glucose 100 mg/dL (74-106); Magnesium 2.0 mg/dL (1.6-2.6); Osmolality,Calculated 267 (275-295); Phosphorous 3.9 mg/dL (2.4-5.1); Potassium 4.2 mMol/L (3.4-5.1); Sodium 133 mMol/L (136-145); Total Protein 6.0 gm/dL (5.7-8.2); eGFR > 60 See Note
--- NOTE | 2024-09-27 09:25 | PD.TNEUROPRO ---
Tele Neuro Progress Note Progress Note Date 09/27/24 in MRI, will be seen 09/28/24 Most Recent Vital Signs Last Vital Signs Temp 98.0 F 09/27/24 08:00 Pulse 94 09/27/24 08:00 Resp 20 09/27/24 08:00 BP 165/73 H 09/27/24 08:00 Pulse Ox 98 09/27/24 08:00 O2 Del Method Room Air 09/27/24 08:00 O2 Flow Rate 2 09/27/24 00:00 Laboratory-Coagulation Panel PT 10.4 Seconds (9.0-12.2) 09/26/24 10:23 INR 0.9 (0.9-1.3) 09/26/24 10:23 APTT 24.3 Seconds (22.0-36.0) 09/26/24 10:23
--- NOTE | 2024-09-27 12:47 | ESPR_ITS ---
Documentation for date of: 09/27/24 Subjective Subjective Interval history: Pt examined at bedside today. No acute overnight events. Patient reports she is doing well and is wondering when to go home. She still reports some dysuria at this time. No other complaints this time Exam Vital Signs Temp Pulse Resp BP Pulse Ox O2 Del Method O2 Flow Rate 98.0 F 94 20 165/73 H 98 Room Air 2 09/27/24 08:00 09/27/24 08:00 09/27/24 08:00 09/27/24 08:00 09/27/24 08:00 09/27/24 08:00 09/27/24 00:00 Narrative Exam General: AAOx3, NAD, frail elderly woman HEENT: Moist mucous membranes, conjunctiva clear, EOMI, PERRLA, Cardiovascular: S1, S2, radial pulses +2 bilat, RRR Pulmonary: CTAB bilat no cough, no wheezing GI: No tenderness to light or deep palpitation, no guarding, rigidity, rebound tenderness or distension Extremities: No presence of trace or pitting edema in lower extremities bilaterally, dorsalis pedis pulses +2 bilaterally Neuro: AAOx3, no focal motor or sensory deficits in the UE or LE bilat Psych: Good judgement, thought and behavior Objective Labs 09/28/24 05:38 09/28/24 05:38 Labs: Laboratory Results - last 24 hr 09/26/24 09/26/24 09/26/24 11:10 14:15 14:53 WBC RBC Hgb Hct MCV MCH MCHC RDW Std Deviation Plt Count Neut % (Auto) Lymph % (Auto) [place] % (Auto) Eos % (Auto) Baso % (Auto) Neut # (Auto) Lymph # (Auto) [place] # (Auto) Eos # (Auto) Baso # (Auto) Immature Gran # (Auto) Absolute Nucleated RBC Immature Gran % Nucleated RBC % Sodium Potassium Chloride Carbon Dioxide Anion Gap BUN Creatinine Estim Creat Clear Calc eGFR BUN/Creatinine Ratio Glucose Calculated Osmolality Lactic Acid 1.7 Calcium Corrected Calcium Phosphorus Magnesium Total Bilirubin AST ALT Alkaline Phosphatase Troponin I 0.125 H* Total Protein Albumin Globulin Albumin/Globulin Ratio Ur Collection Type Catheter Urine Color Colorless A Urine Clarity Clear Urine pH 7.0 Ur Specific [place] 1.016 Urine Protein Negative Urine Glucose (UA) Negative Urine Ketones Negative Urine Blood Negative Urine Nitrite Negative Urine Bilirubin Negative Urine Urobilinogen (Auto) Negative Ur Leukocyte Esterase Negative Urine RBC 2 Urine WBC 1 Ur Squamous Epith Cells 1 Urine Bacteria None 09/26/24 09/27/24 20:37 04:50 WBC 13.6 H RBC 4.99 Hgb 13.0 Hct 41.0 MCV 82 MCH 26.1 MCHC 31.7 RDW Std Deviation 48.4 H Plt Count 379 D Neut % (Auto) 60 Lymph % (Auto) 29 [place] % (Auto) 10 Eos % (Auto) 0 Baso % (Auto) 0 Neut # (Auto) 8.2 H Lymph # (Auto) 4.0 [place] # (Auto) 1.3 H Eos # (Auto) 0.0 Baso # (Auto) 0.0 Immature Gran # (Auto) 0.05 H Absolute Nucleated RBC 0.00 Immature Gran % 0 Nucleated RBC % 0 Sodium 133 L Potassium 4.2 D Chloride 94 L Carbon Dioxide 29.3 Anion Gap 10 BUN 15 Creatinine 0.8 Estim Creat Clear Calc Not Performed. eGFR > 60 BUN/Creatinine Ratio 19 Glucose 100 Calculated Osmolality 267 L Lactic Acid 1.4 Calcium 8.8 Corrected Calcium 9.0 Phosphorus 3.9 Magnesium 2.0 Total Bilirubin 0.6 AST 21 ALT 13 Alkaline Phosphatase 130 H D Troponin I 0.382 H* D 0.171 H* D Total Protein 6.0 Albumin 3.8 D Globulin 2.2 L Albumin/Globulin Ratio 1.7 Ur Collection Type Urine Color Urine Clarity Urine pH Ur Specific [place] Urine Protein Urine Glucose (UA) Urine Ketones Urine Blood Urine Nitrite Urine Bilirubin Urine Urobilinogen (Auto) Ur Leukocyte Esterase Urine RBC Urine WBC Ur Squamous Epith Cells Urine Bacteria Quality Measures Quality Measures sepsis Current suspected stage: sepsis Possible source: pulmonary Blood cultures ordered: yes Antibiotic ordered: Yes Advance care planning discussed with:: patient Assessment & Plan Assessment Current Active Medications: Generic Name Dose Route Start Last Admin Trade Name Freq PRN Reason Stop Dose Admin Aspirin 81 mg 09/27/24 09:00 09/27/24 08:32 Aspirin Ec 81 Mg Tabec PO 10/27/24 08:59 81 mg QDAY GERARD Administration Atorvastatin Calcium 40 mg 09/26/24 21:00 09/26/24 21:47 Atorvastatin Calcium 20 Mg Tablet PO 10/26/24 20:59 40 mg HS GERARD Administration Bisacodyl 10 mg 09/26/24 17:46 Bisacodyl 10 Mg Supp DE 10/26/24 17:49 QDAY PRN CONSTIPATION Protocol Diazepam 2.5 mg 09/26/24 18:20 09/27/24 08:32 Diazepam Inj 5 Mg/Ml Vial 2 Ml IVP 10/01/24 18:19 2.5 mg X1 PRN Administration for mri Ceftriaxone Sodium/Dextrose 1 gm in 50 mls @ 100 mls/hr 09/27/24 09:00 09/27/24 08:32 Rocephin/D5w 1gm Iv Premix IV 10/04/24 08:59 100 mls/hr QDAY GERARD Administration Levothyroxine Sodium 50 mcg 09/27/24 06:00 09/27/24 05:45 Levothyroxine Sodium 25 Mcg Tablet PO 10/27/24 05:59 50 mcg ACBR GERARD Administration Loratadine 10 mg 09/26/24 17:46 09/27/24 08:32 Loratadine 10 Mg Tablet PO 10/27/24 08:59 10 mg QDAY PRN Administration itchiness or allergies Pantoprazole Sodium 40 mg 09/27/24 09:00 09/27/24 08:32 Pantoprazole Inj 40 Mg Vial IVP 10/27/24 08:59 40 mg QDAY GERARD Administration Simethicone 80 mg 09/26/24 17:46 Simethicone 80 Mg Chew PO 10/26/24 17:45 QID PRN GAS Plan Asssessment 88-year-old female with past medical history of bladder prolapse (1995), hypertension, and rheumatoid arthritis presents to the Emergency Department BIBA from home with complaint of altered mental status, difficulty speaking LKW: 09:25 #Sepsis secondary to #UTI Febrile and leukocytosis Lactate: 1.7, resolved SOFA: 2 points Sepsis due to 2/4 SIRS criteria with acute sepsis-related organ dysfunction as evidence by troponemia Given Sepsis Bolus of 1L Plan: ? Rocephin 1 g IV (09-26 ? Follow-up urine cultures ? Follow-up blood cultures #Acute CVA rule out Head CT and CT Neck negative at this time Plan: ? Neurology consulted, appreciate recs ? MR stroke protocol ? Speech therapy ? Physical therapy ? Echo ? Neurochecks every 4 hours ? Head of bed elevation 30 degrees ? DVT prophylaxis ? Bedrest ? Lipitor 40 mg at bedtime ? Aspirin 81 mg #Health Maintenance Disposition: Telemetry DVT prophylaxis: SCDs GI prophylaxis: Protonix Diet: Cardiac CODE STATUS: Full Patient seen and care discussed with my attending physician, Dr. Charlee Medley, PGY-2 Attending Provider Attestation/Addendum I have discussed and was present for the essential components of the history, physical examination, diagnosis, and treatment plan with the resident. I agree with the patient's care as documented by the resident and amended herein by me. Kiko Deshpande DO. Although this document has been carefully reviewed, there may still be some phonetic and other typographical errors. These errors are purely grammatical due to imperfections in the software program and should not be construed in any way to compromise the substance of the patient's medical care during this visit.
[2024-09-27] MEDS: ATORVASTATIN CALCIUM 20 MG TABLET 40 MG PO (20:19)
[2024-09-28] VITALS: BP 148/71; PULSE 82; PULSE 90; RESP 14; TEMP 36.3; O2SAT 96
[2024-09-28 04:00] VITALS: BP 151/70; PULSE 79; PULSE 87; RESP 19; TEMP 36.2; O2SAT 97
[2024-09-28] MEDS: LEVOTHYROXINE SODIUM 25 MCG TABLET 50 MCG PO (05:24)
[2024-09-28 06:15] LABS: Basophils # (Auto) 0.0 Thou/mm3 (0.0-0.2); Basophils % (Auto) 0 % (0-2.5); Eosinophils # (Auto) 0.1 Thou/mm3 (0.0-0.5); Eosinophils % (Auto) 1 % (0-10); Hematocrit 39.0 % (36.0-46.0); Hemoglobin 12.7 g/dL (12.0-16.0); Immature Granulocytes Auto 0.06 Thou/mm3 (0.00-0.00); Lymphocytes # (Auto) 3.7 Thou/mm3 (1.0-4.8); Lymphocytes % (Auto) 29 % (10-50); Mean Corpuscular HGB Conc 32.6 g/dl (31.0-37.0); Mean Corpuscular Hemoglobin 26.6 pg (25.0-35.0); Mean Corpuscular Volume 82 fL (80-100); Monocytes # (Auto) 1.3 Thou/mm3 (0.0-0.8); Monocytes % (Auto) 10 % (0-12); Neutrophils # (Auto) 7.9 Thou/mm3 (1.8-7.7); Neutrophils % (Auto) 60 % (37-80); Nucleated Red Blood Cell # 0.00 Thou/mm3 (0.00-0.00); Nucleated Red Blood Cell % 0 /100 WBC (0); Platelet Count 342 Thou/mm3 (140-440); RDW Standard Deviation 47.5 fL (36.4-46.3); Red Blood Count 4.77 Miln/mm3 (4.00-5.20); White Blood Count 13.1 Thou/mm3 (3.6-11.0)
[2024-09-28 06:23] LABS: Alanine Aminotransferase 10 U/L (10-49); Albumin, Serum 3.8 gm/dL (3.4-4.8); Albumin/Globulin Ratio 1.7 (1.2-2.2); Alkaline Phosphatase 121 U/L (46-116); Anion Gap 8 (7-16); Aspartate Amino Transferase 17 U/L (0-34); BUN/Creatinine Ratio 14 Ratio (12-20); Bilirubin,Total 0.5 mg/dL (0.3-1.2); Blood Urea Nitrogen 11 mg/dL (9-23); Calcium 8.7 mg/dL (8.3-10.6); Calcium (Corrected) 8.9 mg/dL (8.5-10.1); Carbon Dioxide 27.7 mMol/L (20.0-31.0); Chloride 95 mMol/L (98-107); Creatinine (Component) 0.8 mg/dL (0.6-1.3); Globulin 2.2 gm/dL (2.3-3.5); Glucose 118 mg/dL (74-106); Magnesium 2.0 mg/dL (1.6-2.6); Osmolality,Calculated 263 (275-295); Phosphorous 3.9 mg/dL (2.4-5.1); Potassium 3.9 mMol/L (3.4-5.1); Sodium 131 mMol/L (136-145); Total Protein 6.0 gm/dL (5.7-8.2); eGFR > 60 See Note
[2024-09-28 08:00] VITALS: BP 149/66; PULSE 80; PULSE 85; RESP 20; TEMP 36.8; O2SAT 96
[2024-09-28] MEDS: ASPIRIN EC 81 MG TABEC PO (08:05)
[2024-09-28] MEDS: cefTRIAXone/D5w 1gm IV premix 1 GM/50 ML BAG IV (08:06)
--- NOTE | 2024-09-28 08:19 | PC.SS ---
INDUSTRIAL RELATIONS DIRECTOR conducted bedside contact with the patient conduct initial assessment and to discuss discharge planning.? Patient confirmed demographic information.? Patient resides at home with son, Rodney Gutierrez .? Patient is a retired agile business analyst.? Patient utilizes a walker to assist with ambulation.? Patient reports also possessing a wheelchair for mobility assistance.? Patient does not require the use of home oxygen.? Patient requires assistance with completion of ADL?s.? Patient reports that son assists with ADL completion.? Patient?s PCP is Dr. Navarro [facility].? Patient does not participate with dialysis.? Patient reports not possessing any specialty providers.? Patient utilizes [facility] for medication services.? Plan is for the patient to return home at the time of discharge.? If home health is recommended no preferred agency identified.? Family will provide transportation on behalf of the patient. ?No further discharge needs identified by the patient.? No further intervention required at this time, social work specialist will be available to address any further concerns.? Next of Kin: Rodney Gutierrez D/C Plan: Home
[2024-09-28 10:31] LABS: Free T4 (Free Thyroxine) 1.66 ng/dL (0.89-1.76); Thyroid Stimulating Hormone 4.35 uIU/mL (0.55-4.78)
--- NOTE | 2024-09-28 11:47 | PC.NURSE ---
Talked to Dr. Lopez, patient's discharge is still pending per MD.
[2024-09-28 12:00] VITALS: BP 132/70; PULSE 89; PULSE 93; RESP 17; TEMP 37; O2SAT 97
--- NOTE | 2024-09-28 12:18 | PD.TNEUROPRO ---
Tele Neuro Progress Note Progress Note Date 09/28/24 [facility] TeleNeurology Progress Note Date of Service 09/28/2024 Presentation: Based on previous neurology note(s)09/25 : 88 y/o woman with h/o tremors who presents to the ED via EMS. Emergent telestroke consult requested. Patient is tremulous and confused. No focal deficits on exam. She has intermittent fluent spontaneous speech. Patient appears highly anxious and she states feels anxious. initial NIHSS 2. was taken off aspirin in the past due to anemia Interval history: 09/28/2024: mental status much improved Impression: PTSD altered mental status (resolved), etiology is being investigated results and Recommendations: (Primary Team to order Controlled Medications) Unless specifically noted I Agree with Impression and Plan from previous Neurology note/consult. 1- brain MRI no acute finding 2- CTA head and neck 70% right ICA stenosis, (asymptomatic), likely not intervention candidate can still consider routine outpatient vascular surgery evaluation. 3- reasonable to get routine EEG. 4- reasonable to maintain on aspirin 81mg daily if no contraindication 5- Supportive and symptomatic treatment, electrolyte management and antibiotics (if any) per primary team. 6- Delirium precautions: Blinds open during the day, closed at night, frequent reorientation, minimize nighttime interruptions, when possible avoid benzodiazepines (except with CIWA protocol), opioid pain medications, anticholinergic medications, and other sedative medications. If patient gets agitated, try verbal de-escalation first. 7- Blood Pressure target normotension, avoid rapid lowering of Blood Pressure [facility] Neurologist will follow up with results. Please contact [facility] Navigator to reach me if further questions/concerns arise. Examination: Examination done through interactive audio and video telecommunications with the assist of bedside nursing (when available) awake, alert, oriented x3 speech no aphasia Extraocular movements intact face symmetric weakness in both arms due to rheumatoid arthritis has chronic tremors Patient / Family was informed the Neurology Consult would occur via TeleHealth consult by way of interactive audio and video telecommunications and consented to receiving care in this manner. Patient is being evaluated for possible acute neurologic impairment and high probability of imminent or life - threatening deterioration. I spent total of 15 minutes providing care to this patient, including time for face to face visit via telemedicine, review of medical records, imaging studies and discussion of findings with providers, the patient and / or family. Dr Damon Fisher [facility] For Inpatient follow-up with [facility] physician please call [facility] . This is not an outpatient service. Post hospital discharge, please contact hospital directly. Please do not communicate with [facility] physicians via secure chat. If you have any questions, Please contact [facility]. Please call or reconsult our service if there are any clinical or diagnostic changes. Most Recent Vital Signs Last Vital Signs Temp 98.3 F 09/28/24 08:00 Pulse 80 09/28/24 08:00 Resp 20 09/28/24 08:00 BP 149/66 H 09/28/24 08:00 Pulse Ox 96 09/28/24 08:00 O2 Del Method Room Air 09/28/24 08:00 O2 Flow Rate 2 09/27/24 00:00 Laboratory-Coagulation Panel PT 10.4 Seconds (9.0-12.2) 09/26/24 10:23 INR 0.9 (0.9-1.3) 09/26/24 10:23 APTT 24.3 Seconds (22.0-36.0) 09/26/24 10:23
--- NOTE | 2024-09-28 14:09 | PC.NURSE ---
Per Dr. Medley, hold discharge until he looks into EEG as outpatient per teleneuro.
[2024-09-28 14:45] VITALS: BP 133/65; PULSE 91; RESP 19; TEMP 36.9; O2SAT 97
--- NOTE | 2024-09-28 17:22 | PD.RESDS ---
Planned Discharge Date 09/28/24 DS: Providers Provider Date of admission: 09/26/24 14:22 Primary care physician: Lars Navarro MD Admitting Provider: Mitch Deshpande DO Attending Provider on Admission: Mitch Deshpande DO Consults: 09/26/24 10:10 Consult to Neurology / Tele-Neurology Routine Comment: Consulting Provider: [facility] 09/26/24 20:16 Referral Physical Therapy Routine Comment: Physician Instructions: Referral Speech Therapy Routine Comment: Attending Provider on DC: Mitch Deshpande DO Discharging Provider: Mitch Deshpande DO DS: Diagnosis Problem List Completed Was Problem List Reviewed/Reconciled?: Yes Hospital Course Hospital Course Hospital course: 88-year-old female with past medical history of bladder prolapse (1995), hypertension, and rheumatoid arthritis who was admitted to [facility] on September 26, 2024 for acute encephalopathy and stroke rule out. Patient arrived to the ED with a temperature of 102, otherwise unremarkable vitals. Patient was worked up was found to have leukocytosis, troponin elevation 0.125, elevated procalcitonin. Due to patient's altered mentation, patient was worked up with stroke alert. Stroke alert, head CT was unremarkable, neck CTA showed 70% stenosis of the left internal carotid artery. NIHSS score of 2 was obtained. Due to patient's vitals and concern for sepsis, sepsis alert was initiated and patient was put on broad-spectrum antibiotics. Medicine was consulted and patient was managed with floors. While on the floors, patient had an MRI done which showed negative for acute hemorrhage, mass effect or midline shift, no acute infarct, significant irregularity of the right posterior cerebral artery. Patient was put on aspirin afterwards. Patient was put on IV Rocephin (3 days) to treat for patient's UTI, which ended up showing a negative urine culture in addition to negative blood cultures. Patient's mentation continued to improve. Patient's home medicines of baclofen, Xanax and loratadine were held as we believe polypharmacy was involved in patient's acute encephalopathy. TIA could not be ruled out as patient does have some imaging findings that could have caused a TIA, however at this time we will defer to the PCP for further management. Patient was then discharged with the following instructions Discharge instructions Follow-up with your PCP within 1 week Take your medicines as prescribed I am holding your Xanax at this time, resume your PCP I am holding your baclofen, resume PCP I am holding your loratadine at this time, resume PCP if needed Follow up with PCP to refer you to a neurologist for EEG study Return to ED if your symptoms worsen or return Problem List: #Acute Encephalopathy #Sepsis, ruled out #UTI #Acute CVA, Ruled out #Polypharmacy #NSTEMI type II, likely related to demand ischemia Discharge summary was reviewed with my attending Dr. Charlee Medley, PGY-2 Time Spent with Patient Time attestation: Total time spent providing and/or coordinating discharge services: Time spent: Greater than 30 minutes Quality: Stroke Pt Provided Written Stroke Discharge Instructions: No Exam Vital Signs Temp Pulse Resp BP Pulse Ox O2 Del Method O2 Flow Rate 98.4 F 91 19 133/65 H 97 Room Air 2 09/28/24 14:45 09/28/24 14:45 09/28/24 14:45 09/28/24 14:45 09/28/24 14:45 09/28/24 14:45 09/27/24 00:00 Narrative Exam General: AAOx3, NAD, frail elderly woman HEENT: Moist mucous membranes, conjunctiva clear, EOMI, PERRLA, Cardiovascular: S1, S2, radial pulses +2 bilat, RRR Pulmonary: CTAB bilat no cough, no wheezing GI: No tenderness to light or deep palpitation, no guarding, rigidity, rebound tenderness or distension Extremities: No presence of trace or pitting edema in lower extremities bilaterally, dorsalis pedis pulses +2 bilaterally Neuro: AAOx3, no focal motor or sensory deficits in the UE or LE bilat Psych: Good judgement, thought and behavior Discharge Plan Plan Patient Disposition: HOME (Self Care) Patient condition on transfer: Stable Care Plan Goals: Discharge instructions Follow-up with your PCP within 1 week Take your medicines as prescribed I am holding your Xanax at this time, resume your PCP I am holding your baclofen, resume PCP I am holding your loratadine at this time, resume PCP if needed Follow up with PCP to refer you to a neurologist for EEG study Return to ED if your symptoms worsen or return Prescriptions/Referrals Prescriptions/Med Rec: New aspirin 81 mg Tablet,Delayed Release (/Ec) 81 mg PO QDAY 30 Days Qty: 30 0RF Rx Instructions: Take one tablet by mouth every day Continued Anti-Itch (diphenhydramine) 2 % gel 1 applic topical BID Qty: 118 0RF levothyroxine 50 mcg tablet 50 mcg PO DAILY atorvastatin 10 mg tablet 10 mg PO DAILY prednisone 20 mg tablet 20 mg PO BID pantoprazole 20 mg tablet,delayed release (DR/EC) 20 mg PO QDAY celecoxib 200 mg capsule 200 mg PO DAILY felodipine 5 mg tablet extended release 24 hr 5 mg PO DAILY colchicine 0.6 mg tablet 0.6 mg PO BID Patient Comments: pt states that she has never taken this d/t side effects citalopram 20 mg tablet 20 mg PO QDAY Discontinued loratadine [Allerclear] 10 mg tablet 10 mg PO QDAY baclofen 10 mg tablet 10 mg PO BID alprazolam 0.5 mg tablet 0.5 mg PO BID Referrals: Lars Navarro MD [Primary Care Provider] - Patient/Caregiver Discharge Instructions Discharge Activity: activity as tolerated Education Materials: Sepsis, ED Confusion, ED CYSTITIS Female Adult Print Language: Divehi Stand Alone Forms: [email or web address] Award Info., Patient Portal Info Letter Discharge Order Discharge Orders: Discharge (Routine); Ordered 09/28/24 Ordered By: Chayito Medley Quality Discharge Quality Measures VTE prophylaxis Attestestation Attestation I have discussed and was present for the essential components of the discharge history, physical examination, diagnosis, and discharge treatment plan with the resident. I agree with the patient's discharge care as documented by the resident and amended herein by me. Kiko Deshpande, . Patient significantly improved, mentation back to baseline, may have had a TIA, will continue aspirin at discharge per teleneurology recommendations. Patient's urine was also dark on arrival however UA and urine culture was negative, patient was however experiencing urinary symptoms, she did complete a 3-day course of ceftriaxone. Recommend the patient follow-up with her primary care physician within 7 to 10 days of discharge. Patient was stable, afebrile, tolerating p.o. intake at time of discharge home The patient understood all discharge instructions, all questions were answered satisfactorily. The patient was instructed to return to the Emergency Department is symptoms worsened or persisted. Although this document has been carefully reviewed, there may still be some phonetic and other typographical errors. These errors are purely grammatical due to imperfections in the software program and should not be construed in any way to compromise the substance of the patient's medical care during this visit.
== END 2024-09-28 15:19 | disposition home or self-care (01) | DRG 91 ==
LOC: SERX 13:43 → SERHOLD 15:22 → S2NX 09-27 05:51
PROVIDERS: Admitting Provider Student in an Organized Health Care Education/Training Program; Emergency Provider Emergency Medicine; PCP Family Medicine; Visit Provider Student in an Organized Health Care Education/Training Program
DX: G92.8 Other toxic encephalopathy (principal); I21.A1 Myocardial infarction type 2; G93.40 Encephalopathy, unspecified; N39.0 Urinary tract infection, site not specified; R47.01 Aphasia; I65.22 Occlusion and stenosis of left carotid artery; M06.9 Rheumatoid arthritis, unspecified; F43.10 Post-traumatic stress disorder, unspecified; I10 Essential (primary) hypertension; Z79.82 Long term (current) use of aspirin; Z88.0 Allergy status to penicillin; Z79.890 Hormone replacement therapy; T42.8X5A Adverse effect of antiparkinsonism drugs and other central muscle-tone depressants, initial encounter
CPT/HCPCS: 36415; 70450; 70496; 70498; 70544; 71045; 80053; 80307; 81001; 83605; 83735; 83880; 84100; 84145; 84439; 84443; 84484; 85025; 85610; 85730; 87040; 87086; 87400; 87811; 92610; 93005; 96365; 96366; 96375; 97162; 99284; A4649; J0131; J0456; J0696; J2470; J3360; J7030; J7050; Q9967; A9270